=== PATIENT | male | born 1990 | race Native Hawaiian/Other Pacific Islander ===

== ENCOUNTER 2021-12-22 12:21 | Emergency (ER) | payer OTHER ==
[~2021-12-22] VITALS: Ht 175.3 cm; Wt 68.0 kg
[2021-12-22 12:21] VITALS: TEMP 98.2
[2021-12-22 18:05] VITALS: BP 129/76
== END 2021-12-22 18:10 | disposition home or self-care (01) ==
LOC: ED 12:21
DX: M24.411 Recurrent dislocation, right shoulder (principal); X58.XXXA Exposure to other specified factors, initial encounter; Y93.67 Activity, basketball; Y92.149 Unspecified place in prison as the place of occurrence of the external cause
CPT/HCPCS: 96372; 99283; J1885